=== PATIENT | male | born 1950 | race Caucasian/White ===

== ENCOUNTER 2022-12-28 23:28 | Inpatient (IN) | payer MEDICARE, SELFPAY ==
--- NOTE | 2022-12-28 23:15 | RT.EKG_ITS ---
APPROVED REPORT Exam: Resting ECG Reason for Exam: dizzines Patient Location: E HR:73 bpm ECG Measurements Heart Rate 73 AXIS NH 198 P 61 QRSd 173 QRS -87 QT 463 T 102 QTc 513 Conclusion Sinus rhythm... V-rate 60- 99 RBBB and LAFB...QRSd >120mS, axis(-40,240) LVH ST elevation secondary to LVH.
[2022-12-28 23:23] VITALS: BP 122/53; PULSE 85; RESP 22; TEMP 36.5; O2SAT 97
--- NOTE | 2022-12-28 23:30 | DI.CT_ITS ---
Exam(s) CT HEAD WO EXAM: CT HEAD WO CLINICAL HISTORY: altered mental status. TECHNIQUE: Imaging Protocol: Axial computed tomography images with coronal and sagittal reformatted images were created and reviewed COMPARISON: No exams were available for comparison FINDINGS: Ventricles and Extra axial spaces: Normal in size and morphology for the patient's age. Hemorrhage: None. Cerebral parenchyma: No evidence of acute infarct or mass. Mild atrophy. Minimal white matter fisher ges of small vessel disease. Midline shift: None. Brainstem/Cerebellum: Normal. Calvarium: Normal. Visualized Paranasal sinuses/Mastoids: Clear. Soft Tissues: Unremarkable. IMPRESSION: No acute intracranial process. RADIATION DOSE DELIVERED: Total DLP DATA REPOSITORY: All CT scans at this facility are submitted to the National Radiology Data Registry (NRDR) Dose Index Registry (DIR) with the [employer] (A[employer]). RADIATION OPTIMIZATION: All CT scans at this facility use at least one of these dose optimization te chniques: automated exposure control; mA and/or kV adjustment per patient size (includes targeted exa ms where dose is matched to clinical indication); or iterative reconstruction.
--- NOTE | 2022-12-28 23:37 | DI.RAD_ITS ---
Exam(s) XR CHEST 1V IN DI DEPT EXAM: XR CHEST 1V IN DI DEPT CLINICAL HISTORY: altered mental status TECHNIQUE: 2D digital imaging was performed. COMPARISON: No exams were available for comparison FINDINGS: Exam limited by semi-upright technique and leads positioned over the chest. LUNGS: Clear. No pleural abnormality seen. HEART: Mildly enlarged. AORTA: Normal diameter. BONES: Unremarkable for age. Soft tissues: Unremarkable. IMPRESSION: No acute findings. DATA REPOSITORY: RADIATION DOSE DELIVERED:
[2022-12-28 23:39] VITALS: BP 122/53; PULSE 68; RESP 18; O2SAT 92
[2022-12-28 23:40] VITALS: RESP 17; O2SAT 91
[2022-12-28 23:45] VITALS: RESP 20; O2SAT 91
[2022-12-28 23:46] VITALS: BP 88/47; PULSE 67; RESP 21; O2SAT 93
[2022-12-28 23:50] VITALS: BP 99/43; PULSE 66; RESP 16; O2SAT 92
[2022-12-28 23:50] LABS: Abs Immature Grans 0.03 10^3/uL (0.0-0.06); Absolute Basophil Count 0.06 10^3/uL (0.0-0.2); Absolute Lymphocyte Count 2.67 10^3/uL (1.2-3.4); Absolute Monocyte Count 1.13 10^3/uL (0.1-0.8); Absolute Neutrophil Count 4.42 10^3/uL (1.2-6.7); Basophils % 0.7; Eosinophils % 1.2; HCT 49.5 % (40.0-50.0); HGB 16.6 g/dL (13.5-17.5); Immature Grans % 0.4; Lymphocytes % 31.7; MCH 32.9 pg (27.0-33.0); MCHC 33.5 % (32.0-36.0); MCV 98 fL (80-95); MPV 10.8 fL (8.0-11.0); Monocytes % 13.4; Neutrophils % 52.6; Platelet Count 188 10^3/uL (130-400); RBC 5.05 10^6/uL (4.36-5.78); RDW 12.9 % (11.8-14.1); RDW-SD 46.5 fL; WBC 8.41 10^3/uL (4.4-10.8)
[2022-12-29] VITALS (30 sets, daily range): BP systolic 95–155; BP diastolic 45–72; PULSE 62–124; RESP 13–23; TEMP 36.1–36.8; O2SAT 89–99
[2022-12-29 00:17] LABS: ALT 25 U/L (16-63); AST 21 U/L (15-37); Albumin 3.6 g/dL (3.4-5.0); Alkaline Phosphatase 88 U/L (46-116); Anion Gap 18.6 mmol/L (3-11); BUN 24 mg/dL (7-18); Bilirubin, Total 0.7 mg/dL (0.2-1.0); CO2 20.4 mmol/L (21.0-32.0); CREATININE 1.5 mg/dL (0.70-1.30); Calcium 9.7 mg/dL (8.5-10.1); Chloride 96 mmol/L (98-107); ETHANOL BLOOD 184.4 mg/dL (<10); Estimated GFR 49.16 (mL/min/1.73m2); Glucose 174 mg/dL (74-106); Magnesium 1.5 mg/dL (1.8-2.4); Potassium 3.8 mmol/L (3.5-5.1); Sodium 135 mmol/L (136-145); TSH (W/Ref FT4) 6.07 uIU/mL (0.36-3.74); Troponin I < 50 ng/L (<or=60)
[2022-12-29] MEDS: Normal Saline 1,000 ML 1000 ML IV ×2 (00:22→02:12)
[2022-12-29 00:37] LABS: FREE T4 0.86 ng/dL (0.76-1.46)
--- NOTE | 2022-12-29 00:43 | DI.VRAD_ITS ---
PROCEDURE INFORMATION: Exam: CT Head Without Contrast Exam date and time: 12/29/2022 12:31 AM Age: 72 years old Clinical indication: Altered mental status/memory loss; Confusion or disorientation; Additional info: AMS TECHNIQUE: Imaging protocol: Computed tomography of the head without contrast. Radiation optimization: All CT scans at this facility use at least one of these dose optimization techniques: automated exposure control; mA and/or kV adjustment per patient size (includes targeted exams where dose is matched to clinical indication); or iterative reconstruction. COMPARISON: No relevant prior studies available. FINDINGS: Brain: There are areas of diminished density in the white matter bilaterally . Findings likely represent foci of chronic small vessel ischemic changes. Cerebrum is otherwise unremarkable. Jewell-white matter differentiation is intact and otherwise unremarkable. No mass lesion is seen. No mass effect or midline shift. Thalamus is unremarkable. Cerebellum is unremarkable. No posterior fossa mass lesion or mass effect. No pathologic edema. No evidence of cerebellar hemorrhage. Brainstem is unremarkable. No evidence of pontine hemorrhage. No mass effect on the brainstem. Cerebral ventricles: No ventriculomegaly. Paranasal sinuses: Visualized sinuses are unremarkable. No fluid levels. Mastoid air cells: Visualized mastoid air cells are well aerated. Bones/joints: Unremarkable. No acute fracture. Soft tissues: Unremarkable. IMPRESSION: 1. No evidence of acute pathology. 2. Areas of diminished density in bilateral white matter likely representing chronic small vessel ischemic changes. Dictated and Authenticated by: Ryan Rizo MD. Ordering:ABBEY Macdonald MD
--- NOTE | 2022-12-29 00:43 | DI.VRAD_ITS ---
PROCEDURE INFORMATION: Exam: XR Chest Exam date and time: 12/29/2022 12:36 AM Age: 72 years old Clinical indication: Other: AMS TECHNIQUE: Imaging protocol: Radiologic exam of the chest. Views: 1 view. COMPARISON: No relevant prior studies available. FINDINGS: Lungs: No infiltrates. No mass lesion or nodule seen. Pleural spaces: Unremarkable. No pleural effusion. No pneumothorax. Heart/Mediastinum: Unremarkable. No cardiomegaly. Bones/joints: Unremarkable. IMPRESSION: No evidence of pathology. Dictated and Authenticated by: Ryan Rizo MD. Ordering:ABBEY Macdonald MD
--- NOTE | 2022-12-29 00:50 | ED.GENADUL_ITS ---
Discharge Plan Disposition Patient Disposition: Admit to [facility] Condition: Serious Discharge Details Clinical Impression: Syncope, Acidosis, lactic, Aortic stenosis, Coronary artery disease, Diabetes Primary Care Provider: Unknown,Unknown ED Provider: Renae Alejandro Home Meds and New Rx's Prescriptions: No Action empagliflozin 25 mg Tablet 25 mg 1XD lisinopril 20 mg Tablet 20 mg 1XD latanoprost 0.005 % Drops 1 drp 1XD atorvastatin 40 mg Tablet 40 mg 1XD amlodipine 5 mg Tablet 5 mg 1XD metformin 1,000 mg Tablet 1,000 mg 2XD ascorbic acid (vitamin C) 25 mg Tablet 500 mg PO 1XD hydrophilic cream Cream See Rx Instructions .ROUTE .COMPLEX Rx Instructions: eucerin for dry skin cholecalciferol (vitamin D3) 25 mcg (1,000 unit) Tablet 25 mcg 1XD Multivitamin And Mineral Tablet 1 tab 1XD Fish Oil 1,000 mg Capsule 1,000 cap 1XD Medical Decision Making 72yo M with CAD, aortic stenosis, DM, presenting for altered mental status. History from EMS, patient, and family. Re[facility] most [facility]: no medical records available for review. Today had an episode of unresponsivness for 10-15 minutes and seemed somewhat confused afterwards, essentially back to baseline now. No chest pain or shortness of breath. EMS EKG with some ST changes and so he was given 325 ASA. Vital signs and physical exam reassuring on arrival; non-focal neurologic exam. Not consistent with CVA/stroke. -EKG here NSR, appropraite intervals, some slight ST elevations in the setting of LVH and LAFB. Does not meet STEMI criteria. No consistent with occlusive IN. Discussed with cardiology [facility] [place]. Tomlinson; agree not ischemic, plan to trend troponins. -CT head non-con with no bleed or acute findings on my view; agree with radiology read below. CXR reviewed, no pneumonia, agree with radiology read below. -Labs reviewed as below: -Low TSH with normal T4, initial troponin negative, elevated BNP at 2740 (unknown baseline), slight hypomagnesium at 1.5 (orally replaced), ETOH 184.4 (possibly contributing to presentation?) -CBC reassuring with no leukocytosis and no anemia. -CMP with borderline hyponatremia (unlikely related to presentation today), Cr of 1.5 (unknown baseline) and borderline acidosis with Co2 of 20.4 along with elevated gap at 18.6. -With elevated gap, lactic ordered and resulted at 6.1. Unclear etiology; not septic, not in DKA, denies taking additional metformin, denies daily drinking, does not appear to be florid heart failure on exam (had no history of such), description of event not consistent with tonic-clonic seizure. Family at bedside does report some staring spells over the past year which lasted 20-30 seconds at a time. Discussed with Dr. Hdez neurology [facility] [place]; no indication for urgent/emergent EEG, would be appropriate for outpatient neurology followup. Given 1L IVFB and repeat lactic ordered While sleeping does desat to 88-89%; body habitus suggest component of LIDA. On reassessment patient remains alert and denies symptoms. Lungs remain clear and no shortness of breath; ordered 2nd liter of IVF. Vital signs remain reas suring with no tachycardia or hypotension (though BP did trend down somewhat initially SBP in 120', now in 90's with adequate MAP). Delta troponin negative. UA and repeat lactic pending. Given high-risk syncope, warrants further observation/workup/management. Accepted by Dr. Nobles; bridging orders placed at his request. Awaiting transfer to the floor. Imaging Data Radiologic Study: Imaging: CT Scan Radiologist's impression: IMPRESSION: 1. ? No evidence of acute pathology. 2. ? Areas of diminished density in bilateral white matter likely representing chronic small vessel ischemic changes. Radiologic Study #2: Imaging: X-Ray and CT Scan Radiologist's impression: IMPRESSION: No evidence of pathology. Lab Data Lab results reviewed: Yes I reviewed the patient's lab results. Labs: Laboratory Tests Range/Units 12/28/22 12/28/22 12/29/22 23:30 23:30 01:05 WBC (4.4-10.8) 10^3/uL 8.41 RBC (4.36-5.78) 10^6/uL 5.05 Hgb (13.5-17.5) g/dL 16.6 Hct (40.0-50.0) % 49.5 MCV (80-95) fL 98 H MCH (27.0-33.0) pg 32.9 MCHC (32.0-36.0) % 33.5 RDW (11.8-14.1) % 12.9 Plt Count (130-400) 10^3/uL 188 MPV (8.0-11.0) fL 10.8 Immature Gran % 0.4 Neutrophils % 52.6 Lymphocytes % 31.7 Monocytes % 13.4 Eosinophils % 1.2 Basophils % 0.7 Nucleated RBC % (0.0-0.3) % 0.0 Absolute Neutrophils (1.2-6.7) 10^3/uL 4.42 Absolute Lymphocytes (1.2-3.4) 10^3/uL 2.67 Absolute Monocytes (0.1-0.8) 10^3/uL 1.13 H Absolute Eosinophils (0.0-0.7) 10^3/uL 0.10 Absolute Basophils (0.0-0.2) 10^3/uL 0.06 VBG Lactate (0.6-1.4) mmol/L 6.1 H* Sodium (136-145) mmol/L 135 L Potassium (3.5-5.1) mmol/L 3.8 Chloride (98-107) mmol/L 96 L Carbon Dioxide (21.0-32.0) mmol/L 20.4 L Anion Gap (3-11) mmol/L 18.6 H BUN (7-18) mg/dL 24 H Creatinine (0.70-1.30) mg/dL 1.5 H Est GFR (CKD-EPI 2020) (mL/min/1.73m2) 49.16 Glucose (74-106) mg/dL 174 H Calcium (8.5-10.1) mg/dL 9.7 Magnesium (1.8-2.4) mg/dL 1.5 L Total Bilirubin (0.2-1.0) mg/dL 0.7 AST (15-37) U/L 21 ALT (16-63) U/L 25 Alkaline Phosphatase (46-116) U/L 88 Troponin I (<or=60) ng/L < 50 NT-Pro-B Natriuret Pep (<300) pg/mL Total Protein (6.4-8.2) g/dL 8.0 Albumin (3.4-5.0) g/dL 3.6 TSH (0.36-3.74) uIU/mL 6.07 H Free T4 (0.76-1.46) ng/dL 0.86 Ethyl Alcohol (<10) mg/dL 184.4 H Range/Units 12/29/22 01:05 WBC (4.4-10.8) 10^3/uL RBC (4.36-5.78) 10^6/uL Hgb (13.5-17.5) g/dL Hct (40.0-50.0) % MCV (80-95) fL MCH (27.0-33.0) pg MCHC (32.0-36.0) % RDW (11.8-14.1) % Plt Count (130-400) 10^3/uL MPV (8.0-11.0) fL Immature Gran % Neutrophils % Lymphocytes % Monocytes % Eosinophils % Basophils % Nucleated RBC % (0.0-0.3) % Absolute Neutrophils (1.2-6.7) 10^3/uL Absolute Lymphocytes (1.2-3.4) 10^3/uL Absolute Monocytes (0.1-0.8) 10^3/uL Absolute Eosinophils (0.0-0.7) 10^3/uL Absolute Basophils (0.0-0.2) 10^3/uL VBG Lactate (0.6-1.4) mmol/L Sodium (136-145) mmol/L Potassium (3.5-5.1) mmol/L Chloride (98-107) mmol/L Carbon Dioxide (21.0-32.0) mmol/L Anion Gap (3-11) mmol/L BUN (7-18) mg/dL Creatinine (0.70-1.30) mg/dL Est GFR (CKD-EPI 2020) (mL/min/1.73m2) Glucose (74-106) mg/dL Calcium (8.5-10.1) mg/dL Magnesium (1.8-2.4) mg/dL Total Bilirubin (0.2-1.0) mg/dL AST (15-37) U/L ALT (16-63) U/L Alkaline Phosphatase (46-116) U/L Troponin I (<or=60) ng/L NT-Pro-B Natriuret Pep (<300) pg/mL 2740 H Total Protein (6.4-8.2) g/dL Albumin (3.4-5.0) g/dL TSH (0.36-3.74) uIU/mL Free T4 (0.76-1.46) ng/dL Ethyl Alcohol (<10) mg/dL HPI General Mode of arrival: EMS . Date/Time Provider Initiated Documentation: 12/28/22 23:33 . Limitations to Documentation: no limitations . Information obtained by: patient, family and EMS . HPI Narrative: 72yo M with CAD, aortic stenosis, DM, presenting for altered mental status. History from EMS, patient, and family. He was in his usual state of health this morning. Around 10pm at the dinner table he became unresponsive; remained sitting up in his chair but was drooling, trying to talk unsuccessfully, not making eye contact or responding to questions. Family slapped him without response; called EMS. This lasted 10-15 minutes. By EMS arrival he was awake but not quite right according to family. 12-lead for EMS with some ST changes so he was given 325 of aspirin. By arrival to the ED patient alert and able to answer questions. Does not recall the event. Did have some drinks this evening; reports not a daily drinker, no prior hx of ETOH withdrawal. Javi chest pain or shortness of breath at any point. Did feel a little lightheaded just prior; denies currently. No fevers, chills, rash, nausea, vomiting, abdominal pain, LE edema, new orthopnea or FERREIRA, dysuria, hematuria, cough, rhinnorhea, or other concerns. Recent cardiac workup at the [facility] the results of which they have an appointment to discuss next week; plan for some sort of procedure on 01/10 (possibly TAVR?). Related Data Home Medications Medication Instructions Recorded Confirmed amlodipine 5 mg tablet 5 mg 1XD 12/29/22 12/29/22 ascorbic acid (vitamin C) 25 mg 500 mg PO 1XD 12/29/22 12/29/22 tablet atorvastatin 40 mg tablet 40 mg 1XD 12/29/22 12/29/22 cholecalciferol (vitamin D3) 25 25 mcg 1XD 12/29/22 12/29/22 mcg (1,000 unit) tablet empagliflozin 25 mg tablet 25 mg 1XD 12/29/22 12/29/22 hydrophilic cream See Rx Instructions .Route .COMPLEX 12/29/22 12/29/22 latanoprost 0.005 % eye drops 1 drp 1XD 12/29/22 12/29/22 lisinopril 20 mg tablet 20 mg 1XD 12/29/22 12/29/22 metformin 1,000 mg tablet 1,000 mg 2XD 12/29/22 12/29/22 multivitamin,ls-tboa-Xe-FA-min 1 tab 1XD 12/29/22 12/29/22 omega-3 fatty acids-vitamin E 1,000 cap 1XD 12/29/22 12/29/22 1,000 mg capsule General Stated Complaint: AMS/LOC BRANDI: 2 Review of Systems Narrative: see HPI PFSH All Active Problems (Updated 12/29/22 @ 02:39 by Renae Alejandro MD) Syncope (Chronic) Acidosis, lactic (Acute) Aortic stenosis (Chronic) Coronary artery disease (Chronic) Diabetes (Chronic) Social History Smoking/Tobacco Use Status: Current every day Tobacco Type: cigarettes Smoking risk assessment performed?: Yes Exam Narrative Exam Narrative: General: Alert, well appearing, well nourished, in no acute distress. Head: Normocephalic, atraumatic Neck: Trachea midline, Neck supple. ENT: MMM. No oropharygeal lesions or exudate. Cardiac: RRR, no murmurs appreciated Resp: No respiratory distress. CTAB. Abd: Soft, non-distended, nontender : No suprapubic tenderness. No CVA tenderness. Extremities: No deformities. No peripheral edema. Neurologic: GCS 15. Moves all extremities freely against gravity Course Vital Signs Vital signs: Vital Signs Temperature 36.5 C 12/28/22 23:23 Pulse 85 12/28/22 23:23 Respiratory Rate 22 12/28/22 23:23 Blood Pressure 122/53 L 12/28/22 23:23 Pulse Oximetry 97 12/28/22 23:23 Temperature 36.5 C 12/28/22 23:23 Pulse 85 12/28/22 23:23 Respiratory Rate 22 12/28/22 23:23 Respiratory Effort Normal 12/28/22 23:45 Respiratory Depth Normal 12/28/22 23:45 Respiratory Pattern Normal 12/28/22 23:45 Blood Pressure 122/53 L 12/28/22 23:23 Blood Pressure Position Supine 12/28/22 23:23 Pulse Oximetry 97 12/28/22 23:23 Oxygen Delivery Method Room Air 12/28/22 23:23 Oxygen Flow Rate 0 12/28/22 23:23 Pain Level 0 12/28/22 23:23 Lab/Test Results Lab/Test Results: Laboratory Tests Range/Units 12/28/22 12/28/22 23:30 23:30 WBC (4.4-10.8) 10^3/uL 8.41 RBC (4.36-5.78) 10^6/uL 5.05 Hgb (13.5-17.5) g/dL 16.6 Hct (40.0-50.0) % 49.5 MCV (80-95) fL 98 H MCH (27.0-33.0) pg 32.9 MCHC (32.0-36.0) % 33.5 RDW (11.8-14.1) % 12.9 Plt Count (130-400) 10^3/uL 188 MPV (8.0-11.0) fL 10.8 Immature Gran % 0.4 Neutrophils % 52.6 Lymphocytes % 31.7 Monocytes % 13.4 Eosinophils % 1.2 Basophils % 0.7 Nucleated RBC % (0.0-0.3) % 0.0 Absolute Neutrophils (1.2-6.7) 10^3/uL 4.42 Absolute Lymphocytes (1.2-3.4) 10^3/uL 2.67 Absolute Monocytes (0.1-0.8) 10^3/uL 1.13 H Absolute Eosinophils (0.0-0.7) 10^3/uL 0.10 Absolute Basophils (0.0-0.2) 10^3/uL 0.06 Sodium (136-145) mmol/L 135 L Potassium (3.5-5.1) mmol/L 3.8 Chloride (98-107) mmol/L 96 L Carbon Dioxide (21.0-32.0) mmol/L 20.4 L Anion Gap (3-11) mmol/L 18.6 H BUN (7-18) mg/dL 24 H Creatinine (0.70-1.30) mg/dL 1.5 H Est GFR (CKD-EPI 2020) (mL/min/1.73m2) 49.16 Glucose (74-106) mg/dL 174 H Calcium (8.5-10.1) mg/dL 9.7 Magnesium (1.8-2.4) mg/dL 1.5 L Total Bilirubin (0.2-1.0) mg/dL 0.7 AST (15-37) U/L 21 ALT (16-63) U/L 25 Alkaline Phosphatase (46-116) U/L 88 Troponin I (<or=60) ng/L < 50 Total Protein (6.4-8.2) g/dL 8.0 Albumin (3.4-5.0) g/dL 3.6 TSH (0.36-3.74) uIU/mL 6.07 H Free T4 (0.76-1.46) ng/dL 0.86 Ethyl Alcohol (<10) mg/dL 184.4 H
[2022-12-29 01:21] LABS: Lactate 6.1 mmol/L (0.6-1.4)
[2022-12-29 01:53] LABS: NT-proBNP 2740 pg/mL (<300)
[2022-12-29 02:51] LABS: Troponin I < 50 ng/L (<or=60)
--- NOTE | 2022-12-29 03:37 | HPE_ITS ---
Date of service: 12/29/22 Time of Service: 07:39 Assessment and Plan Assessment and plan (1) Syncope: Status: Chronic Assessment and plan: Witnessed syncopal event of unclear etiology. CV must be highest on differential given his history and risk factors. EKG abnormal but per cardiology not c/w acute ischemia. Troponins reassuring. Will monitor on telemetry. Echocardiogram was just done at [facility] so hopefully we can get this report today along with his other cardiac and vascular work up and consultations. I think something like Afib most likely as it would perfuse enough to maintain consciousness but could deminish blood flow to the brain in setting of significant aortic valve disease. CT head negative. Per neuro consult from the ED EEG not indicated. He has had recurrent episodes, but I agree given he remembers the episodes they are not c/w seizures. Acute EtOH intoxcation could have contributed. (2) Acidosis, lactic: Status: Acute Assessment and plan: Unclear etiology. Presentation not c/w sepsis. He may have been dehydrated, and got fluids in the ED and lactate improving. Alcohol could be contributing. High dose metformin in setting of CKD could also contribute. Follow. (3) Alcohol use: Status: Acute Assessment and plan: EtOH level on presentation reflects heavy use. He denies any history of withdrawal, he states he is not an every day drinker and typically drinks more moderately (4) Aortic stenosis: Status: Chronic Assessment and plan: As above possibly could contribute to cardiac syncopy. Request records from [facility]. (5) Coronary artery disease: Status: Chronic Assessment and plan: Continue ASA and high intensity statin. No signs of acute ischemia causing syncope. (6) Diabetes: Status: Chronic Assessment and plan: Treated with metformin and empaglaflozin. We don't have an A1c so will order. CUt metformin dose given CKD and lactate high. (7) Renal insufficiency: Status: Chronic Assessment and plan: We don't have a baseline. Will monitor. (8) Smoker: Assessment and plan: States he quit Saturday, using patch. Encouraged (9) DVT prophylaxis: Status: Acute Assessment and plan: LMWH (10) Discharge planning issues: Status: Acute Assessment and plan: Stable on medical floor on telemetry. History of Present Illness History of Present Illness Chief Complaint: syncope Narrative: 72 yo M recent smoker with CAD, DM, Aortic stenosis presents after watched him loose conciousness the night prior to admission. He and his were having a late snack at around 10pm when Mr. Cornelius became unresponsive. The food he was eating fell out of his mouth. His slapped him but couldn't rouse him. This lasted around 15 minutes. Mr. Cornelius states he remembers everything that happened, did not fully loose consciousness, but felt zoned out. He did not have symptoms leading up to or after including chest pain, dizzines, or palpitations. He had no abnormal movements. He has not felt ill or feverish before or after. He did admit that he was having similar episodes in the spring, but hasn't had any since then until now, feels like loosing 30lbs helped that. He admits he drank more than usual last night, not sure how much wiskey. He also mentioned he was down at the [facility] and had 5 teeth removed and had a battery of vascular tests in preparation for endovascular surgery, TAVR? He is pretty sure he had an echocardiogram and coratid dopplers this week. Review of Systems Constitutional Constitutional: Denies anorexia, Denies chills, Denies fever(s), Denies headach e(s), Reports lethargy and Denies weakness Eyes Eyes: Denies change in vision and Denies irritation ENT Ears, Nose, Mouth, and Throat: Reports dental pain (healing from dental surgery), Denies dizziness, Denies headache(s), Denies nasal congestion, Denies nasal discharge and Denies sore throat Cardiovascular Cardiovascular: Denies chest pain, Reports leg edema, Denies palpitations, Denies dyspnea and Denies orthopnea Respiratory Respiratory: Denies cough, Denies excessive phlegm production, Denies dyspnea and Denies wheezing Gastrointestinal Gastrointestinal: Denies abdominal pain, Denies heartburn, Denies diarrhea, Denies nausea and Denies vomiting Genitourinary Genitourinary: Denies hematuria, Denies dysuria and Denies urinary incontinence Musculoskeletal Musculoskeletal: Denies abnormal gait Integumentary/Breasts Skin/Breast: Denies rash and Denies skin ulcer Neurologic Neurologic: Denies abnormal speech, Denies abnormal gait, Denies confusion, Denies dizziness, Denies headache(s), Denies localized weakness, Denies memory loss, Denies convulsions, Denies sensory deficit and Denies weakness Psychiatric Psychiatric: Denies confusion, Denies memory loss and Denies mood swings Endocrine Endocrine: Denies palpitations Hematologic/Lymphatic Hematologic/Lymphatic: Denies easy bleeding Allergic/Immunologic Allergic/Immunologic: Denies wheezing PFSH All Active Problems (Updated 12/29/22 @ 07:59 by Berto Nobles) Lactic acidemia (Acute) Discharge planning issues (Acute) DVT prophylaxis (Acute) Renal insufficiency (Chronic) Alcohol use (Acute) Syncope (Chronic) Acidosis, lactic (Acute) Aortic stenosis (Chronic) Coronary artery disease (Chronic) Diabetes (Chronic) Medical History Hypertension PAD (peripheral artery disease) Smoker Surgical History (Updated 12/29/22 @ 07:41 by Berto Nobles) S/P tonsillectomy Family History (Updated 12/29/22 @ 07:42 by Berto Nobles) Father Stroke Social History (Updated 12/29/22 @ 07:45 by Berto Nobles) Smoking/Tobacco Use Status: Current every day Tobacco Type: cigarettes Counseling given: support medications Smoking risk assessment performed?: Yes Alcohol Intake: current Alcohol Intake frequency: a few times a week Alcohol type: hard liquor Counseling given: Yes Counseling provided: reduce to 2 or less/day Drug use: Never Housing: house Additional Social history: Lives with MELCHOR Byrd and roommate Fab on [facility] Worked at [employer] for many years, retired [employer] Allergies and Home Medications Allergies Allergy/AdvReac Type Severity Reaction Status Date / Time No Known Allergies Allergy Unverified 12/29/22 03:29 Home Medications Medication Instructions Recorded Confirmed Type amlodipine 5 mg tablet 5 mg 1XD 12/29/22 12/29/22 History ascorbic acid (vitamin C) 25 mg 500 mg PO 1XD 12/29/22 12/29/22 History tablet atorvastatin 40 mg tablet 40 mg 1XD 12/29/22 12/29/22 History cholecalciferol (vitamin D3) 25 25 mcg 1XD 12/29/22 12/29/22 History mcg (1,000 unit) tablet empagliflozin 25 mg tablet 25 mg 1XD 12/29/22 12/29/22 History hydrophilic cream See Rx Instructions .Route .COMPLEX 12/29/22 12/29/22 History latanoprost 0.005 % eye drops 1 drp 1XD 12/29/22 12/29/22 History lisinopril 20 mg tablet 20 mg 1XD 12/29/22 12/29/22 History metformin 1,000 mg tablet 1,000 mg 2XD 12/29/22 12/29/22 History multivitamin,cx-idld-Oc-FA-min 1 tab 1XD 12/29/22 12/29/22 History omega-3 fatty acids-vitamin E 1,000 cap 1XD 12/29/22 12/29/22 History 1,000 mg capsule Exam Narrative Exam Narrative: GEN: Alert and oriented, pleasant, jovial, and cooperative, gives linear history. No acute distress at rest. HEENT: Head atraumatic. Conjunctiva clear, no icterus. PEERL, EOMI. no rhinorrhea. MMM, OP benign except healing gums. Neck is supple with no masses or lymphadenopathy, trachea midline LUNGS: CTAB with normal effort CV: RRR with 2-3/6 systolic ejection murmur USB to neck and axilla. no gallops, or rubs. +carotid bruit on left (vs radiating murmur). coratid pulse 1+ martha. ABD: +BS, soft, NT/ND EXT: no cyanosis, clubbing. 1+ pitting edema to lower shins. Feet purple with thready DP pulses MSK: No joint redness or swelling NEURO: CN 2-12 grossly intact. Normal movement of 4 extremities. Normal speech and coordination. no tremor SKIN: No rashes or open wounds. PSYCH: normal mood and affect Results Imaging Chest x-ray: report reviewed (No evidence of pathology.) EKG: report reviewed (Sinus rhythm... V-rate 60- 99 RBBB and LAFB...QRSd >120mS, axis(- 40,240) LVH ST elevation secondary to LVH.) Imaging Studies: CT head: 1. ? No evidence of acute pathology. 2. ? Areas of diminished density in bilateral white matter likely representing chronic small vessel ischemic changes. Labs 12/29/22 04:40 12/29/22 04:40 Labs: Laboratory Results - last 24 hr 12/28/22 12/28/22 12/29/22 23:30 23:30 01:05 WBC 8.41 RBC 5.05 Hgb 16.6 Hct 49.5 MCV 98 H MCH 32.9 MCHC 33.5 RDW 12.9 Plt Count 188 MPV 10.8 Immature Gran % 0.4 Neutrophils % 52.6 Lymphocytes % 31.7 Monocytes % 13.4 Eosinophils % 1.2 Basophils % 0.7 Nucleated RBC % 0.0 Absolute Neutrophils 4.42 Absolute Lymphocytes 2.67 Absolute Monocytes 1.13 H Absolute Eosinophils 0.10 Absolute Basophils 0.06 VBG Lactate 6.1 H* Sodium 135 L Potassium 3.8 Chloride 96 L Carbon Dioxide 20.4 L Anion Gap 18.6 H BUN 24 H Creatinine 1.5 H Est GFR (CKD-EPI 2020) 49.16 Glucose 174 H Calcium 9.7 Magnesium 1.5 L Total Bilirubin 0.7 AST 21 ALT 25 Alkaline Phosphatase 88 Troponin I < 50 NT-Pro-B Natriuret Pep Total Protein 8.0 Albumin 3.6 TSH 6.07 H Free T4 0.86 Ethyl Alcohol 184.4 H 12/29/22 12/29/22 01:05 02:28 WBC RBC Hgb Hct MCV MCH MCHC RDW Plt Count MPV Immature Gran % Neutrophils % Lymphocytes % Monocytes % Eosinophils % Basophils % Nucleated RBC % Absolute Neutrophils Absolute Lymphocytes Absolute Monocytes Absolute Eosinophils Absolute Basophils VBG Lactate Sodium Potassium Chloride Carbon Dioxide Anion Gap BUN Creatinine Est GFR (CKD-EPI 2020) Glucose Calcium Magnesium Total Bilirubin AST ALT Alkaline Phosphatase Troponin I < 50 NT-Pro-B Natriuret Pep 2740 H Total Protein Albumin TSH Free T4 Ethyl Alcohol Last Vital Signs Temp 36.1 C L 12/29/22 03:15 Pulse 71 12/29/22 03:15 Resp 16 12/29/22 03:15 BP 135/63 12/29/22 03:15 Pulse Ox 92 12/29/22 03:15 Time Spent Time spent with Patient: 55-74 minutes Time was spent: preparing to see the patient(eg.review tests), obtaining and/or reviewing separately otained hiistory, ordering medications,tests, procedures, referring, communicating with other health resident care director, indepentently interpreting results and counseling the patient
[2022-12-29] MEDS: MAGNESIUM SULFATE 2 GM/50 ML BAG IVPB ×2 (03:52→09:41)
[2022-12-29 04:50] LABS: Abs Immature Grans 0.02 10^3/uL (0.0-0.06); Absolute Basophil Count 0.04 10^3/uL (0.0-0.2); Absolute Eosinophil Count 0.12 10^3/uL (0.0-0.7); Absolute Lymphocyte Count 2.32 10^3/uL (1.2-3.4); Absolute Monocyte Count 0.95 10^3/uL (0.1-0.8); Absolute Neutrophil Count 3.17 10^3/uL (1.2-6.7); Basophils % 0.6; Eosinophils % 1.8; HCT 43.5 % (40.0-50.0); HGB 14.7 g/dL (13.5-17.5); Immature Grans % 0.3; MCH 32.9 pg (27.0-33.0); MCHC 33.8 % (32.0-36.0); MCV 97 fL (80-95); MPV 10.8 fL (8.0-11.0); Monocytes % 14.4; Neutrophils % 47.9; Platelet Count 186 10^3/uL (130-400); RBC 4.47 10^6/uL (4.36-5.78); RDW 12.9 % (11.8-14.1); RDW-SD 45.9 fL; WBC 6.62 10^3/uL (4.4-10.8)
[2022-12-29 04:58] LABS: Anion Gap 15.7 mmol/L (3-11); BUN 25 mg/dL (7-18); CO2 21.3 mmol/L (21.0-32.0); CREATININE 1.2 mg/dL (0.70-1.30); Calcium 8.9 mg/dL (8.5-10.1); Chloride 98 mmol/L (98-107); Estimated GFR 64.25 (mL/min/1.73m2); Glucose 138 mg/dL (74-106); Magnesium 1.6 mg/dL (1.8-2.4); Potassium 3.5 mmol/L (3.5-5.1); Sodium 135 mmol/L (136-145)
[2022-12-29 07:36] LABS: Hemoglobin A1C 6.4 % (<5.7)
[2022-12-29] MEDS: Empaglifozin 25 MG TAB PO (07:50)
[2022-12-29] MEDS: metFORMIN 500 MG TAB PO (07:50)
[2022-12-29] MEDS: Lisinopril 20 MG TAB PO (07:50)
[2022-12-29] MEDS: Cholecalciferol (Vitamin D3) 1,000 UNIT TAB 1000 UNITS PO (07:51)
[2022-12-29] MEDS: Atorvastatin 40 MG TAB PO (07:51)
[2022-12-29] MEDS: Ascorbic Acid 500 MG TAB PO (07:51)
[2022-12-29] MEDS: amLODIPine 5 MG TAB PO (07:51)
[2022-12-29] MEDS: Enoxaparin 40 MG/0.4 ML SYR SC (07:51)
[2022-12-29 08:17] LABS: Bilirubin Negative (Negative); Blood Negative (Negative); Clarity Clear (Clear); Glucose >=1000 mg/dL (Negative); Ketones Negative (Negative); Leukocyte Esterase Negative (Negative); Nitrite Negative (Negative); Specific Gravity <= 1.005 (1.005-1.025)
[2022-12-29 08:27] LABS: Bacteria Rare HPF (Negative); C & S Indicated? No; Casts Negative LPF (Negative); Crystals Negative HPF (Negative); Epithelial Cells Rare HPF (Negative); Mucus Trace (Negative); RBC 0-2 HPF (0-2); WBC 0-2 HPF (0-5)
--- NOTE | 2022-12-29 12:41 | DSE_ITS ---
Date of service: 12/29/22 Time of Service: 12:42 DS: Diagnosis Discharge Diagnosis (1) Syncope: Status: Chronic (2) Acidosis, lactic: Status: Acute (3) Alcohol use: Status: Acute (4) Aortic stenosis: Status: Chronic (5) Coronary artery disease: Status: Chronic (6) Diabetes: Status: Chronic (7) Renal insufficiency: Status: Chronic (8) Smoker: Discharge Plan Disposition Patient Disposition: Home Condition: Stable Discharge Details Reason For Visit: Syncope Admit Date/Time: 12/29/22 02:14 Admit Provider: Berto Nobles Attending Provider: Berto Nobles Primary Care Provider: Unknown,Unknown Hospital Course Hospital Course: This is a 72-year-old male patient with a past medical history for coronary artery disease diabetes mellitus type 2 and aortic stenosis who presented for evaluation after a brief loss of consciousness. It occurred while having a s nack. The food reportedly fell out of his mouth he did not fall over apparently his tried to arouse him but his unresponsiveness lasted about 15 minutes. He claims he remembers everything that happened but felt zoned out. He denies any chest pain dizziness or palpitations there was no tremors or abnormal movements tongue biting or loss of bowel or bladder. He reports he had a similar episode in the spring. He has had no recent illness. His work-up in the emergency department showed a head CT with no acute pathology areas of diminished density bilaterally in the white matter most likely representing chronic small vessel ischemic changes. His labs showed normal white count H&H and platelets. No electrolyte disturbance. Creatinine was elevated at 1.5 and did improved to 1.2 after IV hydration overnight. Blood sugar controlled his hemoglobin A1c was checked and is 6.4. Magnesium was low at 1.6 which was repleted with 4 g of IV mag BNP 2700 but no shortness of breath. Does report intermittent bilateral lower extremity edema. TSH 6.0 urine was negative for urinary tract infection he did come in with a blood alcohol level of 185. Also noted was an elevated lactate at 6.0 which did improve to 4.0. There was a third lactate pending but after discussion with patient he opted to be discharged prior to this being rechecked as he clinically is feeling better taking good oral intake and hemodynamically stable I think it is reasonable as it is trending downward and clinically improved with no current symptoms currently. Does have a significant systolic murmur consistent with his history of aortic stenosis. Scheduled to be followed on Saturday for further management of this. He is stable and ready for discharge to home. He was advised to resume previous medication return sooner for new or worsening symptoms discharge discussed with Dr. Watt Home Meds and New Rx's Prescriptions: Continued empagliflozin 25 mg Tablet 25 mg 1XD lisinopril 20 mg Tablet 20 mg 1XD latanoprost 0.005 % Drops 1 drp 1XD atorvastatin 40 mg Tablet 40 mg 1XD amlodipine 5 mg Tablet 5 mg 1XD metformin 1,000 mg Tablet 1,000 mg 2XD ascorbic acid (vitamin C) 25 mg Tablet 500 mg PO 1XD hydrophilic cream Cream See Rx Instructions .ROUTE .COMPLEX Rx Instructions: eucerin for dry skin cholecalciferol (vitamin D3) 25 mcg (1,000 unit) Tablet 25 mcg 1XD multivitamin,xx-wvlt-Zy-FA-min Tablet 1 tab 1XD omega-3 fatty acids-vitamin E 1,000 mg Capsule 1,000 cap 1XD Discharge Instructions Instructions: Aortic Stenosis (DC), Syncope (DC) Stand Alone Forms: Nursing Discharge Form Referrals: Unknown,Unknown [Primary Care Provider] - (Keep scheduled follow-up appointment with your python django developer return to the nearest emergency department sooner for new or worsening symptoms) Activity:: Activity as Tolerated Equipment/Supplies:: No Equipment Needed Diet:: As Tolerated Discharge Orders Discharge Orders: Discharge Order (Routine); Ordered 12/29/22 Ordered By: Tatiana Shah Discharge Data Discharge Date/Time-TO BE ENTERED AT DEPARTURE: 12/29/22 13:11 DS: Summary Time Spent with Patient providing and/or coordinating discharge services: Less than 30 minutes Status at Discharge Functional status at discharge: independent ambulation Overall status at discharge: patient is back to baseline Mental Status: mental status grossly normal Speech and Movement: speech and movement normal Mood: congruent mood Affect: normal affect Exam Const General: comfortable, no acute distress and ill appearing chronically Nutritional Appearance: obese Orientation: alert, awake and oriented x3 Other: Flushed face savanah skin tone HENMT Head: normal to inspection, normocephalic and atraumatic Mouth: oral mucosae normal Cardio Heart Sounds: murmur systolic V/ GI Inspection: normal to inspection and obesity Palpation: soft Neuro General: patient alert, patient awake and patient oriented x3 Extrem General: pedal edema Psych Mental Status: mental status grossly normal Speech and Movement: speech and movement normal Mood: congruent mood Affect: normal affect DS: Data Vitals/I&O Vitals and I&O: Vital Signs Temperature 36.8 C 12/29/22 11:24 Temperature Source Tympanic 12/29/22 11:24 Pulse 78 12/29/22 11:24 Pulse Rhythm Regular 12/29/22 07:45 Pulse 65 12/29/22 01:16 Respiratory Rate 17 12/29/22 11:24 Respiratory Effort Normal 12/29/22 07:45 Respiratory Depth Normal 12/29/22 07:45 Respiratory Pattern Normal 12/29/22 07:45 Blood Pressure 155/72 H 12/29/22 11:24 Blood Pressure Mean 61 12/29/22 01:16 Blood Pressure Position Supine 12/28/22 23:23 Pulse Oximetry 93 12/29/22 11:24 Oxygen Delivery Method Room Air 12/29/22 11:24 Oxygen Flow Rate 0 12/29/22 11:24 Pain Level 0 12/29/22 11:24 Intake & Output 12/28/22 12/29/22 12/29/22 23:59 11:59 23:59 Intake Total 2009 Output Total 280 / 280 Balance 1730 / 1730 Weight 125.1 kg 119.748 kg Intake: IV 2009 Output: Urine 280 / 280 Other: Urine Color Yellow Urine Appearance Clear Urine Odor None Comment pT voided in toilet, unsure of amount Voiding Methods Urinal Data Completed and Pending Labs on day of discharge: Labs from last 24 hours 12/29/22 12/29/22 12/29/22 14:00 08:01 04:40 WBC RBC Hgb Hct MCV MCH MCHC RDW Plt Count MPV Immature Gran % Neutrophils % Lymphocytes % Monocytes % Eosinophils % Basophils % Nucleated RBC % Absolute Neutrophils Absolute Lymphocytes Absolute Monocytes Absolute Eosinophils Absolute Basophils VBG Lactate Pending Sodium Potassium Chloride Carbon Dioxide Anion Gap BUN Creatinine Est GFR (CKD-EPI 2020) Glucose Hemoglobin A1c 6.4 H Calcium Magnesium Total Bilirubin AST ALT Alkaline Phosphatase Troponin I NT-Pro-B Natriuret Pep Total Protein Albumin TSH Free T4 Urine Color Yellow Urine Clarity Clear Urine pH 5.0 Ur Specific [place] <= 1.005 Urine Protein Trace H Urine Ketones Negative Urine Blood Negative Urine Nitrite Negative Urine Bilirubin Negative Urine Urobilinogen 1.0 H Ur Leukocyte Esterase Negative Urine RBC 0-2 Urine WBC 0-2 Ur Epithelial Cells Rare Urine Crystals Negative Urine Bacteria Rare Urine Casts Negative Urine Mucus Trace Ur Culture Indicated? No Urine Glucose >=1000 H Ethyl Alcohol 12/29/22 12/29/22 12/29/22 04:40 04:40 04:40 WBC 6.62 RBC 4.47 Hgb 14.7 Hct 43.5 MCV 97 H MCH 32.9 MCHC 33.8 RDW 12.9 Plt Count 186 MPV 10.8 Immature Gran % 0.3 Neutrophils % 47.9 Lymphocytes % 35.0 Monocytes % 14.4 Eosinophils % 1.8 Basophils % 0.6 Nucleated RBC % 0.0 Absolute Neutrophils 3.17 Absolute Lymphocytes 2.32 Absolute Monocytes 0.95 H Absolute Eosinophils 0.12 Absolute Basophils 0.04 VBG Lactate 4.0 H* Sodium 135 L Potassium 3.5 Chloride 98 Carbon Dioxide 21.3 Anion Gap 15.7 H BUN 25 H Creatinine 1.2 Est GFR (CKD-EPI 2020) 64.25 Glucose 138 H Hemoglobin A1c Calcium 8.9 Magnesium 1.6 L Total Bilirubin AST ALT Alkaline Phosphatase Troponin I NT-Pro-B Natriuret Pep Total Protein Albumin TSH Free T4 Urine Color Urine Clarity Urine pH Ur Specific [place] Urine Protein Urine Ketones Urine Blood Urine Nitrite Urine Bilirubin Urine Urobilinogen Ur Leukocyte Esterase Urine RBC Urine WBC Ur Epithelial Cells Urine Crystals Urine Bacteria Urine Casts Urine Mucus Ur Culture Indicated? Urine Glucose Ethyl Alcohol 12/29/22 12/29/22 12/29/22 02:28 01:05 01:05 WBC RBC Hgb Hct MCV MCH MCHC RDW Plt Count MPV Immature Gran % Neutrophils % Lymphocytes % Monocytes % Eosinophils % Basophils % Nucleated RBC % Absolute Neutrophils Absolute Lymphocytes Absolute Monocytes Absolute Eosinophils Absolute Basophils VBG Lactate 6.1 H* Sodium Potassium Chloride Carbon Dioxide Anion Gap BUN Creatinine Est GFR (CKD-EPI 2020) Glucose Hemoglobin A1c Calcium Magnesium Total Bilirubin AST ALT Alkaline Phosphatase Troponin I < 50 NT-Pro-B Natriuret Pep 2740 H Total Protein Albumin TSH Free T4 Urine Color Urine Clarity Urine pH Ur Specific [place] Urine Protein Urine Ketones Urine Blood Urine Nitrite Urine Bilirubin Urine Urobilinogen Ur Leukocyte Esterase Urine RBC Urine WBC Ur Epithelial Cells Urine Crystals Urine Bacteria Urine Casts Urine Mucus Ur Culture Indicated? Urine Glucose Ethyl Alcohol 12/28/22 12/28/22 23:30 23:30 WBC 8.41 RBC 5.05 Hgb 16.6 Hct 49.5 MCV 98 H MCH 32.9 MCHC 33.5 RDW 12.9 Plt Count 188 MPV 10.8 Immature Gran % 0.4 Neutrophils % 52.6 Lymphocytes % 31.7 Monocytes % 13.4 Eosinophils % 1.2 Basophils % 0.7 Nucleated RBC % 0.0 Absolute Neutrophils 4.42 Absolute Lymphocytes 2.67 Absolute Monocytes 1.13 H Absolute Eosinophils 0.10 Absolute Basophils 0.06 VBG Lactate Sodium 135 L Potassium 3.8 Chloride 96 L Carbon Dioxide 20.4 L Anion Gap 18.6 H BUN 24 H Creatinine 1.5 H Est GFR (CKD-EPI 2020) 49.16 Glucose 174 H Hemoglobin A1c Calcium 9.7 Magnesium 1.5 L Total Bilirubin 0.7 AST 21 ALT 25 Alkaline Phosphatase 88 Troponin I < 50 NT-Pro-B Natriuret Pep Total Protein 8.0 Albumin 3.6 TSH 6.07 H Free T4 0.86 Urine Color Urine Clarity Urine pH Ur Specific [place] Urine Protein Urine Ketones Urine Blood Urine Nitrite Urine Bilirubin Urine Urobilinogen Ur Leukocyte Esterase Urine RBC Urine WBC Ur Epithelial Cells Urine Crystals Urine Bacteria Urine Casts Urine Mucus Ur Culture Indicated? Urine Glucose Ethyl Alcohol 184.4 H PFSH All Active Problems (Updated 12/29/22 @ 07:59 by Berto Nobles) Lactic acidemia (Acute) Discharge planning issues (Acute) DVT prophylaxis (Acute) Renal insufficiency (Chronic) Alcohol use (Acute) Syncope (Chronic) Acidosis, lactic (Acute) Aortic stenosis (Chronic) Coronary artery disease (Chronic) Diabetes (Chronic) Medical History Hypertension PAD (peripheral artery disease) Smoker Surgical History (Updated 12/29/22 @ 07:41 by Berto Nobles) S/P tonsillectomy Family History (Updated 12/29/22 @ 07:42 by Berto Nobles) Father Stroke Social History (Updated 12/29/22 @ 07:45 by Berto Nobles) Smoking/Tobacco Use Status: Current every day Tobacco Type: cigarettes Counseling given: support medications Smoking risk assessment performed?: Yes Alcohol Intake: current Alcohol Intake frequency: a few times a week Alcohol type: hard liquor Counseling given: Yes Counseling provided: reduce to 2 or less/day Drug use: Never Housing: house Additional Social history: Lives with MELCHOR Byrd and roommate Fab on [facility] Worked at [employer] for many years, retired Time Spent with Patient Time Spent with Patient: <45 minutes Time was spent: preparing to see the patient(eg.review tests), obtaining and/or reviewing separately otained hiistory, ordering medications,tests, procedures, indepentently interpreting results and counseling the patient
== END 2022-12-29 13:11 | disposition home or self-care (01) | DRG 312 ==
LOC: ER 12-29 02:38 → MS 12-29 03:05
PROVIDERS: Admitting Provider Family Medicine; Emergency Provider Student in an Organized Health Care Education/Training Program; Visit Provider Family Medicine
DX: R55 Syncope and collapse (principal); E87.20 Acidosis, unspecified; I35.0 Nonrheumatic aortic (valve) stenosis; E11.22 Type 2 diabetes mellitus with diabetic chronic kidney disease; F17.210 Nicotine dependence, cigarettes, uncomplicated; N18.9 Chronic kidney disease, unspecified; F10.90 Alcohol use, unspecified, uncomplicated; Z79.84 Long term (current) use of oral hypoglycemic drugs; I12.9 Hypertensive chronic kidney disease with stage 1 through stage 4 chronic kidney disease, or unspecified chronic kidney disease; I73.9 Peripheral vascular disease, unspecified; E83.42 Hypomagnesemia; Y90.6 Blood alcohol level of 120-199 mg/100 ml
CPT/HCPCS: 36415; 80048; 80053; 93005; 96360; 99285; J1650; 70450; 71045; 80320; 81003; 81015; 83036; 83605; 83735; 83880; 84439; 84443; 84484; 85025; 93010; 99235

== ENCOUNTER 2024-03-27 01:17 | Emergency (ER) | payer MEDICARE, SELFPAY ==
[2024-03-27] VITALS (155 sets, daily range): BP systolic 139–229; BP diastolic 43–86; PULSE 63–89; RESP 14–27; TEMP 35.8–37.2; O2SAT 84–95
--- NOTE | 2024-03-27 01:15 | RT.EKG_ITS ---
APPROVED REPORT Exam: Resting ECG Reason for Exam: dizzy, pre-syncope Patient Location: E HR:81 bpm ECG Measurements Heart Rate 81 AXIS OH 253 P 78 QRSd 151 QRS -80 QT 446 T 118 QTc 517 Conclusion Sinus rhythm...normal P axis, V-rate 60- 99 Prolonged OH interval...OH >220, V-rate 50- 90 Right bundle branch block...QRSd>120, terminal axis(90,270) LVH with IVCD and secondary repol abnrm...multi-criteria, wQRSd, abnr ST-T There are no significant changes compared to prior EKG performed on 12/28/2022 at 23:26.
--- NOTE | 2024-03-27 01:20 | W.ED.GENAD ---
Discharge Plan Disposition Patient Disposition: Home Condition: Stable Discharge Details Clinical Impression: Nausea & vomiting, Light-headed feeling Primary Care Provider: Unknown,Unknown ED Provider: Edvin Albrecht Meds and New Rx's Prescriptions: Continued aspirin 81 mg capsule 81 mg PO DAILY empagliflozin 25 mg Tablet 25 mg PO 1XD lisinopril 20 mg Tablet 20 mg PO 1XD atorvastatin 40 mg Tablet 40 mg PO 1XD amlodipine 5 mg Tablet 5 mg PO 1XD metformin 1,000 mg Tablet 1,000 mg PO 2XD ascorbic acid (vitamin C) 25 mg Tablet 500 mg PO 1XD hydrophilic cream Cream See Rx Instructions .ROUTE .COMPLEX Rx Instructions: eucerin for dry skin cholecalciferol (vitamin D3) 25 mcg (1,000 unit) Tablet 25 mcg PO 1XD multivitamin,of-jacz-Mf-FA-min Tablet 1 tab PO 1XD omega-3 fatty acids-vitamin E 1,000 mg Capsule 1,000 cap PO 1XD Discharge Instructions Instructions: Nausea and Vomiting, Adult ED Additional Instructions: You were seen in the ED for episode of lightheadedness with associated nausea and vomiting. Your exam, EKG, laboratory studies, imaging studies as well as interrogation of your pacemaker are all reassuring. It is unclear at this time for the cause of your symptoms when they occurred. Please follow-up with your doctors in the [facility] system this coming week. You should return to the ED for any neurologic change, worsening headache, chest pain, shortness of breath, persistent vomiting, syncope or other concerns. Referrals: [facility] [Outside] HPI General Mode of arrival: EMS. Date/Time Provider Initiated Documentation: 03/27/24 01:20. Limitations to Documentation: no limitations. Information obtained by: patient and RN notes reviewed. HPI Narrative: Patient presents to ED by ambulance after developing near syncope with associated nausea and vomiting this evening. Patient had felt fine throughout the day. He went to bed and was unable to get to sleep. He rolled over a couple of times and felt very lightheaded and reports that he almost passed out. He denies any type of spinning sensation either externally or internally. He was able to stand and walk. He had multiple episodes of vomiting. He did not lose consciousness. He received ondansetron and fluids en route. At no time did he notice any type of neurologic change, chest pain or pressure, back pain, abdominal pain. He is feeling much better now. He did receive a TAVR as well as a pacemaker last fall at the [facility]. He denies any recent illnesses. He denies any fever, shortness of breath, cough. He is a smoker and reports that he typically does have low pulse oximetry. Related Data Home Medications ?Medication ?Instructions ?Recorded ?Confirmed amlodipine 5 mg tablet 5 mg PO 1XD 12/29/22 03/27/24 ascorbic acid (vitamin C) 25 mg 500 mg PO 1XD 12/29/22 03/27/24 tablet atorvastatin 40 mg tablet 40 mg PO 1XD 12/29/22 03/27/24 cholecalciferol (vitamin D3) 25 25 mcg PO 1XD 12/29/22 03/27/24 mcg (1,000 unit) tablet empagliflozin 25 mg tablet 25 mg PO 1XD 12/29/22 03/27/24 hydrophilic cream See Rx Instructions .Route .COMPLEX 12/29/22 03/27/24 lisinopril 20 mg tablet 20 mg PO 1XD 12/29/22 03/27/24 metformin 1,000 mg tablet 1,000 mg PO 2XD 12/29/22 03/27/24 multivitamin,lk-jlkz-Oz-FA-min 1 tab PO 1XD 12/29/22 03/27/24 omega-3 fatty acids-vitamin E 1,000 cap PO 1XD 12/29/22 03/27/24 1,000 mg capsule aspirin 81 mg capsule 81 mg PO DAILY 03/27/24 03/27/24 Allergies Allergy/AdvReac Type Severity Reaction Status Date / Time No Known Allergies Allergy Unverified 03/27/24 01:18 General BRANDI: 2 Review of Systems Narrative: Per HPI Exam Narrative Exam Narrative: Const: Obese male in NAD. VS per triage. HEENT: NC/AT. Normal facial exam. Neck: Supple. Trachea midline. Lungs: Normal respiratory effort. Lungs are clear. Cor: RRR with murmur. Good radial pulses. GI: Soft/ND/NT. Neuro: A+O x 3. Normal speech, mentation, gait. Cranial nerves II - XII grossly intact. No gross motor or sensory deficit. Ext: No C/C/E. Medical Decision Making Patient presenting from home with complaint of near syncope and vomiting. Does not report dizziness or vertigo. He was able to walk to the bathroom. He never lost consciousness. He does have a pacemaker but not a defibrillator. He is also status post TAVR. Denies any type of chest pain or pressure. He is diabetic and did have nausea and vomiting. His EKG is sinus rhythm with right bundle branch block, LVH, repolarization abnormalities all of which are old. He received fluids and Zofran en route. He is feeling better here. We have interrogated his pacemaker. Will obtain old records from the [facility]. Laboratory studies including 3 sets of troponin have been ordered. Chest imaging will be based upon D-dimer result. 04:00 - Patient's labs with a elevated white count 13.2. Hemoglobin and platelets are normal. Chemistries with low magnesium at 1.5 which was replaced. Initial troponin and 1 hour troponin normal and flat. D-dimer elevated so CTA of chest obtained. Per preliminary radiology read there is no pulmonary embolus. There is no infiltrate. There are some suggestion of mild edema. Interrogation of his pacemaker does not reveal any arrhythmias this evening. Patient continues to feel nauseated despite the previous ondansetron given by EMS. IV prochlorperazine ordered. His third troponin and urinalysis remain pending. Continues to otherwise have no complaint of pain, shortness of breath, neurologic change, vertigo symptoms. 06:00 - Patient had nausea resolve with the prochlorperazine. Urinalysis shows no evidence of infection. A third troponin is 43 with no rise to suggest myocardial injury. Patient has remained asymptomatic here in regards to any other symptoms such as vertigo, headache, neurologic change, chest pain or pressure, shortness of breath. He does periodically desaturate but for the most part maintains pulse ox at 90. Does have history of sleep apnea. He has had no arrhythmias on the monitor here. He appears safe for discharge home at this time. He is asked to follow-up with with the [facility] where he gets most of his care. We discussed return precautions. Medical Records Medical records reviewed: Yes I reviewed the patient's medical records. Medical records narrative: Obtained old records from the [facility]. Lab Data Lab results reviewed: Yes I reviewed the patient's lab results. Lab results narrative: see [facility] ECG Data Attestation: I personally reviewed and interpreted this ECG (s) as follows: Prior ECG tracings: available for review Interpretation: see EKG/MDM PFS All Active Problems (Updated 03/27/24 @ 06:05 by Edvin Albrecht MD) Light-headed feeling (Acute) Nausea & vomiting (Acute) Smoker (Acute) Lactic acidemia (Acute) Renal insufficiency (Chronic) Alcohol use (Acute) Syncope (Chronic) Acidosis, lactic (Acute) Aortic stenosis (Chronic) Medical History Cardiac pacemaker Diabetes Coronary artery disease PAD (peripheral artery disease) Hypertension Surgical History S/P TAVR (transcatheter aortic valve replacement) S/P tonsillectomy Family History (Updated 12/29/22 @ 07:42 by Berto Nobles) Father Stroke Social History Smoking/Tobacco Use Status: Current every day Tobacco Type: cigarettes Counseling given: support medications Smoking risk assessment performed?: Yes Alcohol Intake: current Alcohol Intake frequency: a few times a week Alcohol type: hard liquor Counseling given: Yes Counseling provided: reduce to 2 or less/day Drug use: Never Substance use type: does not use Housing: house Do you feel safe at home: Yes Do you feel safe in your relationship?: Yes Additional Social history: Lives with MELCHOR Byrd and roommate Fab on [facility] [place] Worked at [employer] for many years, retired
[2024-03-27 01:49] LABS: Abs Immature Grans 0.05 10^3/uL (0.0-0.06); Absolute Basophil Count 0.08 10^3/uL (0.0-0.2); Absolute Lymphocyte Count 3.63 10^3/uL (1.2-3.4); Absolute Monocyte Count 0.91 10^3/uL (0.1-0.8); Absolute Neutrophil Count 8.28 10^3/uL (1.2-6.7); Basophils % 0.6 %; Eosinophils % 1.5 %; HCT 49.4 % (40.0-50.0); HGB 16.5 g/dL (13.5-17.5); Immature Grans % 0.4 %; Lymphocytes % 27.6 %; MCH 33.1 pg (27.0-33.0); MCHC 33.4 % (32.0-36.0); MCV 99 fL (80-95); MPV 10.8 fL (8.0-11.0); Monocytes % 6.9 %; Platelet Count 195 10^3/uL (130-400); RBC 4.98 10^6/uL (4.36-5.78); RDW 13.2 % (11.8-14.1); RDW-SD 48.5 fL; WBC 13.15 10^3/uL (4.4-10.8)
[2024-03-27 02:06] LABS: ALT 26 U/L (16-63); AST 24 U/L (15-37); Albumin 3.5 g/dL (3.4-5.0); Alkaline Phosphatase 91 U/L (46-116); Anion Gap 12.7 mmol/L (3-11); BUN 20 mg/dL (7-18); Bilirubin, Total 0.71 mg/dL (0.2-1.0); CO2 25.3 mmol/L (21.0-32.0); CREATININE 1.1 mg/dL (0.70-1.30); Calcium 9.8 mg/dL (8.5-10.1); Chloride 103 mmol/L (98-107); Estimated GFR 70.88 (mL/min/1.73m2); Glucose 167 mg/dL (74-106); Magnesium 1.5 mg/dL (1.8-2.4); Potassium 4.5 mmol/L (3.5-5.1); Sodium 141 mmol/L (136-145); Total Protein 7.9 g/dL (6.4-8.2); Troponin I 47 ng/L (<or=76)
[2024-03-27] MEDS: MAGNESIUM SULFATE 2 GM/50 ML BAG IV_INF (02:29)
[2024-03-27 02:45] LABS: D-Dimer 3678 ng/mlFEU (<500)
--- NOTE | 2024-03-27 02:45 | DI.CT_ITS ---
Exam(s) CT CHEST PE CTA EXAM: CT CHEST PE CTA CLINICAL HISTORY: near syncope, hypoxemia, + ddimer. TECHNIQUE: Imaging Protocol: Axial CT angiography was performed with multi-slice acquisition and mu lti-planar and/or 3D reconstructions. Computer aided detection (CAD) was utilized. CONTRAST MATERIAL: Intravenous: Omnipaque 350 contrast volume:100 mL COMPARISON: CR,XR XR CHEST 1V IN DI DEPT from 12/29/2022 FINDINGS: Tracheobronchial tree: Patent where visualized. No bronchiectasis. Pulmonary parenchyma: There are no focal consolidating infiltrates present. Mild interstitial promin ence is seen in the lungs predominantly peripherally. No pulmonary nodules are seen. Pulmonary Arteries: The opacification of the subsegmental and segmental pulmonary arteries is subopti mal. No definite large central pulmonary embolism is present. Mediastinum and Anabella: There are mildly enlarged lymph nodes in the mediastinum. The largest measures 2.5 cm. There also mildly enlarged lymph nodes seen in the right hilum. The esophagus is unremarka ble. Visualized thyroid gland: Unremarkable. Pleura: No effusion or pneumothorax. Heart: The heart is not dilated. Three vessel coronary artery calcification is present. No pericardi al effusion. There is an aortic valve replacement. Aorta: The ascending thoracic aorta measures 4.5 x 4.0 cm. No evidence of dissection. Atheroscleroti c patient is present. Upper abdomen: Cholelithiasis. Tubes, Catheters, and Lines: There is a residential monitor in the left chest wall. Soft tissues: Mild gynecomastia, right greater than left. Bones: Within normal limits for the patient's age. IMPRESSION: 1. No evidence of a pulmonary embolism or thoracic aortic dissection. 2. Interstitial prominence seen in the lungs predominantly peripherally. Chronic pulmonary fibrosis, interstitial pneumonia or interstitial edema should be considered. Please correlate clinically. No focal consolidating infiltrates. 3. Ascending thoracic aorta measuring 4.5 x 4.0 cm. 4. Cholelithiasis. 5. Nonspecific enlarged mediastinal lymph nodes. RADIATION DOSE DELIVERED: 255.62mGy.cm Total DLP DATA REPOSITORY: All CT scans at this facility are submitted to the National Radiology Data Registry (NRDR) Dose Index Registry (DIR) with the [employer] (ACR). RADIATION OPTIMIZATION: All CT scans at this facility use at least one of these dose optimization te chniques: automated exposure control; mA and/or kV adjustment per patient size (includes targeted exa ms where dose is matched to clinical indication); or iterative reconstruction.
[2024-03-27] MEDS: Prochlorperazine 10 MG/2 ML VIAL IVP (02:58)
[2024-03-27 03:00] LABS: Troponin I 47 ng/L (<or=76)
[2024-03-27] MEDS: Omnipaque 350 MG/ML 100 ML BTL IJ (03:22)
[2024-03-27] MEDS: Normal Saline - Diluent 50 ML VIAL IJ (03:22)
--- NOTE | 2024-03-27 03:46 | DI.VRAD_ITS ---
PROCEDURE INFORMATION: Exam: CTA Chest With Contrast Exam date and time: 03/27/2024 3:10 AM Age: 73 years old Clinical indication: Other: Near syncope, hypoxemia, + ddimer TECHNIQUE: Imaging protocol: Computed tomographic angiography of the chest with contrast. Exam focused on the arteries. 3D rendering (Not supervised by radiologist): MIP and/or 3D reconstructed images were created by the technologist. Contrast material: OMNI 350; Contrast volume: 100 ml; Contrast route: INTRAVENOUS (IV); COMPARISON: No relevant prior studies are available for comparison. FINDINGS: Tubes, catheters and devices: Cardiac pacing device. Pulmonary arteries: No pulmonary embolus is appreciated. Aorta: Ascending thoracic aorta ectatic to 4 cm. Atherosclerotic changes in the aorta and its branches. Lungs: Mild interstitial thickening and faint ground-glass opacities in the lungs. Pleural spaces: No pleural effusion. Heart: Aortic valve replacement. Coronary arteries: Coronary artery calcifications. Lymph nodes: Nonspecific mediastinal and hilar lymph nodes. Gallbladder and biliary ducts: Sludge and/or small calculi in the gallbladder. Bones/joints: No acute pertinent abnormality seen. Soft tissues: Gynecomastia. IMPRESSION: 1. No pulmonary embolus is appreciated. 2. Mild interstitial thickening and ground-glass opacities in the lungs, suggesting mild edema. 3. Additional findings as above. Dictated and Authenticated by: Cassy Street MD. Ordering:NATALIE Pardo MD
[2024-03-27 04:27] LABS: Bilirubin Negative (Negative); Blood Negative (Negative); Clarity Clear (Clear); Glucose 500 mg/dL (Negative); Ketones Negative (Negative); Leukocyte Esterase Negative (Negative); Nitrite Negative (Negative); Specific Gravity 1.015 (1.005-1.025); Urobilinogen 0.2 mg/dL (Up to 0.2)
[2024-03-27 04:35] LABS: Bacteria Rare HPF (Negative); C & S Indicated? No; Casts Negative LPF (Negative); Crystals Negative HPF (Negative); Epithelial Cells Rare HPF (Negative); Mucus Negative (Negative); RBC Negative HPF (0-2); WBC Negative HPF (0-5)
[2024-03-27 05:52] LABS: Troponin I 43 ng/L (<or=76)
== END 2024-03-27 06:30 | disposition home or self-care (01) ==
PROVIDERS: Emergency Provider Emergency Medicine
DX: R11.2 Nausea with vomiting, unspecified (principal); R42 Dizziness and giddiness; Z86.79 Personal history of other diseases of the circulatory system; Z95.0 Presence of cardiac pacemaker; F17.200 Nicotine dependence, unspecified, uncomplicated
CPT/HCPCS: 71275; 80053; 93005; 96365; 96366; 96375; 99285; 81003; 81015; 83735; 84484; 85025; 85379; 93010; 99284; J0780; J3475; J3490